=== PATIENT | female | born 1945 | race Caucasian/White ===

== ENCOUNTER → 2017-08-24 | Outpatient (CLI) | payer OTHER ==
[~2017-08-24] MED LIST: ASPI325 PO; Coumadin7.5 MG PO; MULTI VITAMIN1 EACH; MULVITMIND PO; WARF5 PO
[2017-09-10 09:17] LABS: Source Cervix
== END | disposition home or self-care (01) ==
LOC: LAB 08:30
PROVIDERS: Internal Medicine
DX: Z01.419 Encounter for gynecological examination (general) (routine) without abnormal findings (principal)
CPT/HCPCS: G0145

== ENCOUNTER → 2019-02-24 | Outpatient (CLI) | payer OTHER | END | disposition home or self-care (01) | LOC: PLD 11:47 → LAB SHORT 11:47 | DX: L57.0 Actinic keratosis (principal) | CPT/HCPCS: 88305 ==

== ENCOUNTER → 2021-04-05 | Outpatient (CLI) | payer OTHER | END | disposition home or self-care (01) | LOC: LAB 12:24 → LAB SHORT 12:24 | DX: C44.629 Squamous cell carcinoma of skin of left upper limb, including shoulder (principal); L57.0 Actinic keratosis | CPT/HCPCS: 88305 ==

== ENCOUNTER → 2021-04-28 | Outpatient (CLI) | payer OTHER | END | disposition home or self-care (01) | LOC: LAB 15:15 → LAB SHORT 15:15 | DX: L57.0 Actinic keratosis (principal) | CPT/HCPCS: 88305 ==

== ENCOUNTER 2022-03-20 07:49 | Day surgery (SDC) | payer OTHER ==
[2022-03-20] MEDS ORDERED: ASPI325 PO (08:26)
[2022-03-20] MEDS ORDERED: VITAMIN D3 PO (08:27)
[2022-03-20] MEDS ORDERED: GABA300 PO (08:28)
[2022-03-20] MEDS ORDERED: ALEVE220 MG PO (08:29)
[2022-03-20] MEDS ORDERED: MVI PO (08:29)
[2022-03-20] MEDS ORDERED: PRAM.5 PO (08:30)
[2022-03-20] MEDS ORDERED: ZOLP5 PO (08:31)
--- NOTE | 2022-03-20 09:19 | NUR ---
PT TOLERATED RYLAN WELL.
[2022-03-20] MEDS ORDERED: OMEP20ER PO (09:41)
--- NOTE | 2022-03-20 10:23 | NUR ---
PT DRANK WATER WITH NO ASPIRATION. DISCHARGE INSTRUCTIONS REVIEWED WITH PT AND HER , BHAVESH. 20 IV DISCONTINUED FROM LEFT AC WITH INTACT CANNULA. PT ESCORTED OUT VIA WHEELCHAIR ESCORT.
== END 2022-03-20 10:45 | disposition home or self-care (01) ==
LOC: MHTC 07:49
DX: I35.0 Nonrheumatic aortic (valve) stenosis (principal)
CPT/HCPCS: 93312; 93325; A9270; J7030

== ENCOUNTER → 2022-04-18 | Outpatient (CLI) | payer OTHER | END | disposition home or self-care (01) | LOC: PLD 07:56 | DX: C44.629 Squamous cell carcinoma of skin of left upper limb, including shoulder (principal) ==

== ENCOUNTER → 2022-04-26 | Outpatient (CLI) | payer OTHER ==
[~2022-04-26] MED LIST changes: +ALEVE220 MG PO; +GABA300 PO; +MVI PO; +OMEP20ER PO; +PRAM.5 PO; +VITAMIN D3 PO; +ZOLP5 PO
== END | disposition home or self-care (01) ==
LOC: PLD 07:19 → LAB SHORT 07:19
DX: C44.629 Squamous cell carcinoma of skin of left upper limb, including shoulder (principal)
CPT/HCPCS: 88305

== ENCOUNTER → 2022-12-05 | Outpatient (CLI) | payer OTHER ==
[~2022-12-05] MED LIST changes: +GABA100 PO; -GABA300 PO; +MULTI-VITAMIN1 EAC2 PO; -MVI PO
== END | disposition home or self-care (01) ==
LOC: LAB SHORT 10:54 → PLD 10:54
DX: L57.0 Actinic keratosis (principal)
CPT/HCPCS: 88305

== ENCOUNTER → 2023-04-17 | Outpatient (CLI) | payer OTHER | END | disposition home or self-care (01) | LOC: LAB SHORT 10:30 → LAB 10:30 | DX: L08.0 Pyoderma (principal) | CPT/HCPCS: 87070 ==

== ENCOUNTER 2023-09-11 07:46 | Day surgery (SDC) | payer OTHER ==
[~2023-09-11] VITALS: Ht 154.9 cm; Wt 50.0 kg
[2023-09-11] VITALS (25 sets, daily range): BP systolic 90–161; BP diastolic 54–98
[2023-09-11] MEDS ORDERED: Vitamin D1000 UNI1 PO (09:03)
[2023-09-11] MEDS ORDERED: ACET500 PO (09:07)
--- NOTE | 2023-09-11 09:54 | NUR ---
History, Chart, Medications and Allergies reviewed before start of procedure. Ambulatory in Day Surgery with cane. Pre-Op teaching done. Pt verbalizes understanding. Patient confirms NPO status and agrees with scheduled surgery. Patient reports completing Chlorhexadine shower X2 prior to admission to hospital. Surgical site prepped with 2% Chlorhexidine cloth wipe. Lungs clear T/O to Auscultation. Patient States Post-Procedure ride home has been arranged.
--- NOTE | 2023-09-11 13:13 | NUR ---
ARRIVAL TO UNIT PT ARRIVED TO UNIT FROM PACU. SHE REPORTS PAIN AT 9/10. REPORTS SOME NAUSEA WITH PAIN MEDICATIONS MEDICATED PER EMAR. CURRENTLY RESTING IN BED, SPOUSE AT BEDSIDE. [facility] POLAR CLEM IN PL[facility]. ABLE TO WIGGLE TOES, DENIES NUMBNESS. REMAINS ON ROOM AIR.
--- NOTE | 2023-09-11 19:24 | NUR ---
SHIFT SUMMARY PT HAS HAD UPS & DOWNS POST OP. INITIALLY WAS VERY PAINFUL THEN BECAME VERY DROWSY AFTER IV NARCOTICS GIVEN. CONT BIOX PLACED. LATER BECAME MORE ALERT, BUT STRUGGLED w/ LOWER BP's WHICH RESOLVED w/ IVF. SINCE WAS ABLE TO AMBULATE TO BATHROOM WELL & SIT UP IN CHAIR FOR DINNER. AT BEDSIDE REPORT REPORTED FEELING SLIGHTLY NAUSEATED & VERY TIRED.
[2023-09-12 02:49] VITALS: BP 131/79
[2023-09-12 04:57] LABS: BASOPHILS ABSOLUTE AUTO 0.04 K/mm3 (0.00-0.23); BASOPHILS PERCENT AUTO 0 % (0-2); EOSINOPHILS PERCENT AUTO 0 % (0-6); Hemoglobin 9.5 g/dL (11.5-16.0); IMMATURE GRAN ABSOLUTE AUTO 0.05 K/mm3 (0.00-0.10); IMMATURE GRAN PERCENT AUTO 0 % (0-1); LYMPHOCYTES ABSOLUTE AUTO 1.59 K/mm3 (0.84-5.20); LYMPHOCYTES PERCENT AUTO 12 % (21-46); MONOCYTES ABSOLUTE AUTO 1.13 K/mm3 (0.16-1.47); MONOCYTES PERCENT AUTO 8 % (4-13); Mean Corpuscular HGB 29.3 pg (26.0-34.0); Mean Corpuscular HGB Conc 32.8 g/dL (31.5-36.5); Mean Corpuscular Volume 90 fL (80-100); Mean Platelet Volume 11.5 fL (9.1-12.4); NEUTROPHILS ABSOLUTE AUTO 10.92 K/mm3 (1.96-9.15); NEUTROPHILS PERCENT AUTO 80 % (41-73); Platelet Count 183 K/mm3 (150-400); RDW Coefficient Variation 12.9 % (11.7-14.2); RDW Standard Deviation 41.9 fL (35.1-46.3); Red Blood Cell Count 3.24 M/mm3 (3.80-5.20); White Blood Cell Count 13.73 K/mm3 (4.00-11.30)
[2023-09-12 05:24] LABS: Bun/Creatinine Ratio 15.4 (12.0-20.0); Calcium, Blood 8.5 mg/dL (8.5-10.1); Creatinine, Blood 0.97 mg/dL (0.40-1.00); Potassium, Blood 4.4 mmol/L (3.5-5.5)
--- NOTE | 2023-09-12 06:06 | NUR ---
SHIFT SUMMARY PT POD 0 LEFT TOTAL HIP. PT IS TOLERATING PO INTAKE, IS VOIDING AND AMBULATING. PT ANXIOUS AT TIMES, BUT COOPERATIVE WITH CARE. POST OP VITALS STABLE. DRESSING C/D/I TO HIP. MEDS PRN PER EMAR FOR PAIN WITH EFFECT. BED IN LOWEST POSITION, CALL LIGHT WITHIN REACH.
[2023-09-12 07:21] VITALS: BP 116/81
[2023-09-12] MEDS ORDERED: ASPI81CH PO (09:13)
[2023-09-12] MEDS ORDERED: Percocet 5-3251 EACH PO (09:14)
--- NOTE | 2023-09-12 10:52 | NUR ---
DISCHARGE PT HAS CLEARED THERAPY. PAIN WELL CONTROLLED. EATING, DRINKING, & VOIDING WELL. DRSGS & POLAR PACK SENT w/ PT. (RX SENT w/ SPOUSE YESTERDAY) PT IS VERY ANXIOUS & TEARFUL. SPOUSE IS UNDERSTANDING & FEELS COMFORTABLE w/ DC. ESCORTED OUT VIA W/C.
== END 2023-09-12 10:52 | disposition home or self-care (01) ==
LOC: ORSCMMR 07:46 → ORD 09:15 → ORSCMMR 09:15 → SURS 12:41 → ORSCMMR 09-12 10:52
PROVIDERS: Orthopaedic Surgery
PROC: 0SR90JZ Replacement of Right Hip Joint with Synthetic Substitute, Open Approach (ICD-10-PCS; principal; 2023-09-11 09:15)
DX: M16.11 Unilateral primary osteoarthritis, right hip (principal); Z79.899 Other long term (current) drug therapy; Z79.82 Long term (current) use of aspirin
CPT/HCPCS: 36415; 72170; 80048; 85025; 97110; 97116; 97162; 97530; A9270; C1776; J0171; J0690; J0735; J1100; J1170; J1885; J2250; J2270; J2405; J2704; J2795; J3010; J7120

== ENCOUNTER 2025-05-30 16:59 | Emergency (ER) | payer OTHER ==
[~2025-05-30] VITALS: Ht 152.4 cm; Wt 50.7 kg
[~2025-05-30 16:59] MED LIST changes: +ACET500 PO; +ASPI81CH PO; +Percocet 5-3251 EACH PO; +Vitamin D1000 UNI1 PO
[2025-05-30 17:07] VITALS: BP 184/102
[2025-05-30 17:43] LABS: BASOPHILS ABSOLUTE AUTO 0.09 K/mm3 (0.00-0.23); BASOPHILS PERCENT AUTO 1 % (0-2); EOSINOPHILS ABSOLUTE AUTO 0.27 K/mm3 (0.00-0.68); EOSINOPHILS PERCENT AUTO 4 % (0-6); Hematocrit 36.7 % (33.0-51.0); Hemoglobin 12.4 g/dL (11.5-16.0); IMMATURE GRAN ABSOLUTE AUTO 0.01 K/mm3 (0.00-0.10); IMMATURE GRAN PERCENT AUTO 0 % (0-1); LYMPHOCYTES ABSOLUTE AUTO 2.31 K/mm3 (0.84-5.20); LYMPHOCYTES PERCENT AUTO 32 % (21-46); MONOCYTES ABSOLUTE AUTO 0.59 K/mm3 (0.16-1.47); MONOCYTES PERCENT AUTO 8 % (4-13); Mean Corpuscular HGB Conc 33.8 g/dL (31.5-36.5); Mean Corpuscular Volume 88 fL (80-100); NEUTROPHILS ABSOLUTE AUTO 3.94 K/mm3 (1.96-9.15); NEUTROPHILS PERCENT AUTO 55 % (41-73); NRBC ABSOLUTE 0.00 K/mm3 (0.00-0.02); NRBC Auto 0.0 /100 WBC (0.0-0.2); Platelet Count 243 K/mm3 (150-400); RDW Coefficient Variation 13.5 % (11.7-14.2); RDW Standard Deviation 44.0 fL (35.1-46.3)
[2025-05-30 18:13] LABS: Source, Urine Clean Catch
[2025-05-30 18:14] LABS: Alanine Aminotransfer (ALT/SGP 25.0 U/L (12-78); Albumin, Blood 4.0 g/dL (3.4-5.0); Albumin/Globulin Ratio 1.2 (0.8-1.8); Anion Gap 9.0 mmol/L (3-11); Aspartate Aminotrans (AST/SGOT 18.0 U/L (12-37); Bilirubin, Total 0.4 mg/dL (0.1-1.0); Blood Urea Nitrogen 14.0 mg/dL (8-24); CO2, Blood 26.0 mmol/L (21-32); Calcium, Blood 9.0 mg/dL (8.5-10.1); Chloride, Blood 104.0 mmol/L (98-108); Creatinine, Blood 0.91 mg/dL (0.40-1.00); Globulin, Blood 3.3 g/dL (2.2-4.0); Glucose, Blood 129.0 mg/dL (70-99); Potassium, Blood 3.8 mmol/L (3.5-5.5); Sodium, Blood 135.0 mmol/L (136-145); Total Protein, Blood 7.3 g/dL (6.4-8.2)
[2025-05-30 18:16] LABS: Bilirubin, Urine Neg (Neg); Color, Urine Yellow (P-Yellow); Glucose Qualitative, Urine Neg (Neg); Ketones, Urine Neg (Neg); Leukocyte Esterase, Urine 1+ (Neg); Protein, Urine Neg (Neg); Specific Gravity, Urine 1.015 (1.003-1.022); Urobilinogen, Urine NORM (Normal)
[2025-05-30 18:23] LABS: Red Blood Cells, Urine 0-2 /hpf (0-2)
[2025-06-03] MEDS ORDERED: MIRAPEX0.75 M1 PO (10:52)
== END 2025-05-30 19:16 | disposition left against medical advice (07) ==
LOC: ER 16:59
PROVIDERS: Student in an Organized Health Care Education/Training Program
DX: R55 Syncope and collapse (principal); Z53.21 Procedure and treatment not carried out due to patient leaving prior to being seen by health care provider
CPT/HCPCS: 70450; 72125; 80053; 81001; 85025; 87086; 93005; 93010; 99283-25

== ENCOUNTER 2025-06-04 10:34 | Day surgery (SDC) | payer OTHER ==
[~2025-06-04] VITALS: Ht 154.9 cm; Wt 50.2 kg
[~2025-06-04 10:34] MED LIST changes: +Balanced Salt Epinephrine Irrigation Solution 500 mL IR SCH; +MIRAPEX0.75 M1 PO; +Moxifloxacin HCL 0.5 MG/0.1 ML 0.4MLSYR RIGHTEYE SCH; +NS 500 ML IV ONE; +NS 500 ML ONE; +PHENYLEPHRINE\\TROPICAMIDE\\TETRACAINE OPHTHALMIC DILATING SOLN RIGHTEYE PRN; +Povidone-Iodine 450 DROP/30 ML Solution ONE; +Povidone-Iodine 450 DROP/30 ML Solution RIGHTEYE SCH; +Tetracaine HCl/Pf 0.5% Opth Soln 4 ml ONE; +Triamcinolone Inj Susp 40 MG / ML 1ML Vial INJ SCH; +Triamcinolone Inj Susp 40 MG / ML 1ML Vial ONE
[2025-06-04] MEDS ORDERED: Neurontin 100100 MG PO (11:14)
[2025-06-04] MEDS ORDERED: NS 500 ML IV ONE (11:19)
--- NOTE | 2025-06-04 11:20 | NUR ---
06/04/25 [address]ado: [id number] LEONARDO: [id number]
[2025-06-04] MEDS ORDERED: Midazolam HCl 1MG / ML 2ML Vial ONE (11:31)
[2025-06-04] MEDS ORDERED: FentaNYL Citrate 50 MCG/ML 2 ML Injection ONE (11:31)
[2025-06-04] MEDS ORDERED: Tetracaine HCl 0.5% Opth Soln 15 ml RIGHTEYE ONE (11:38)
[2025-06-04 12:41] VITALS: BP 124/90
== END 2025-06-04 12:30 | disposition home or self-care (01) ==
LOC: ORSCSDS 10:34
PROVIDERS: Ophthalmology
PROC: 08RJ3JZ Replacement of Right Lens with Synthetic Substitute, Percutaneous Approach (ICD-10-PCS; principal; 2025-06-04 12:00)
DX: H25.813 Combined forms of age-related cataract, bilateral (principal); H35.3131 Nonexudative age-related macular degeneration, bilateral, early dry stage; F41.8 Other specified anxiety disorders; E78.5 Hyperlipidemia, unspecified; G25.81 Restless legs syndrome; Z86.711 Personal history of pulmonary embolism; Z79.899 Other long term (current) drug therapy
CPT/HCPCS: J2250; J3010; J3301; J7040; V2632